=== PATIENT | female | born 1970 | race Caucasian/White ===

== ENCOUNTER 2018-08-24 21:04 | Inpatient (IN) | payer BC ==
[2018-08-24] MEDS ORDERED: MORPHINE SULFATE 4 MG/ML SYRINGE IV STA (21:12)
--- NOTE | 2018-08-24 21:15 | ED ---
Abdominal Pain HPI - General Stated Complaint: Abdominal Pain Time Seen by Provider: 08/24/18 21:06 - History of Present Illness Initial Comments: This patient is a 48-year-old woman who arrives here as a transfer from [facility], where she had gone earlier today after developing abdominal pain. The patient states that her pain had started around 2 PM. She indicates it is in the right lower quadrant, she refers to it as a sharp pain, and that it is severe. She states that it is constant and she has not found any relieving factors. She states that it does get worse when she touches that area. She denies any associated symptoms. She went to the other hospital where she had a CAT scan that reportedly has shown an acute appendicitis. MD Complaint: abdominal pain Onset/Timin -: hour(s) Location: RLQ Radiation: none Migration to: no migration Severity: severe Quality: sharp Consistency: constant Improves With: nothing Worsens With: other (Patient) Associated Symptoms: denies other symptoms - Related Data Patient : No (Hysterectomy) Allergies Allergy/AdvReac Type Severity Reaction Status Date / Time No Known Allergies Allergy Verified 08/24/18 21:08 Review of Systems ROS Statement: Those systems with pertinent positive or pertinent negative responses have been documented in the HPI. ROS Other: All systems not noted in ROS Statement are negative. Constitutional: Denies: fever, chills Respiratory: Denies: cough, dyspnea Cardiovascular: Denies: chest pain, palpitations, edema Gastrointestinal: Reports: as per HPI, abdominal pain. Denies: nausea, vomiting , diarrhea, constipation, melena, hematochezia Genitourinary: Denies: dysuria, hematuria Musculoskeletal: Denies: back pain Skin: Denies: rash Neurological: Denies: headache Hematological/Lymphatic: Denies: easy bleeding General Exam General appearance: alert, in no apparent distress Head exam: Present: atraumatic, normocephalic Eye exam: Present: normal appearance. Absent: scleral icterus, conjunctival injection Respiratory exam: Present: normal lung sounds bilaterally. Absent: respiratory distress, wheezes, rales, rhonchi, stridor Cardiovascular Exam: Present: regular rate, normal rhythm, normal heart sounds. Absent: systolic murmur, diastolic murmur, rubs, gallop GI/Abdominal exam: Present: soft, tenderness, guarding. Absent: distended, rebound, rigid, mass, pulsatile mass, hernia Extremities exam: Present: normal inspection, normal capillary refill. Absent: pedal edema, calf tenderness Back exam: Present: normal inspection. Absent: CVA tenderness (R), CVA tenderness (L) Neurological exam: Present: alert Skin exam: Present: warm, dry, intact, normal color. Absent: rash Course Vital Signs 08/24/18 21:08 Temperature 98.3 F Pulse Rate 81 Respiratory 16 Rate Blood Pressure 144/91 O2 Sat by Pulse 97 Oximetry - Reevaluation(s) Reevaluation #1: 08/24/18 21:[address] Luther, I requests patient be admitted, continued nothing by mouth, IV fluids, antibiotics, and he is arranging the OR time. Disposition Clinical Impression: Acute appendicitis Disposition: ADMITTED IP TO THIS HOSP Condition: Fair Is patient prescribed a controlled substance at d/c from ED?: No Referrals: Fam Taylor DO [Primary Care Provider] - 1-2 days
[2018-08-24] MEDS ORDERED: ONDANSETRON 4 MG/2 ML VIAL IVP PRN (21:21)
[2018-08-24] MEDS ORDERED: MORPHINE SULFATE 4 MG/ML SYRINGE IV PRN (21:21)
[2018-08-24] MEDS ORDERED: NALOXONE 0.4 MG/ML 1 ML VIAL IV PRN (21:21)
[2018-08-24] MEDS: SODIUM CHLORIDE 0.9% 1,000 ML IV STA (21:43)
[2018-08-24] MEDS: HYDROmorphone 1 MG/ML 1 ML SYRINGE IVP PRN (23:08)
[2018-08-24] MEDS: PIPERACILLIN-TAZOBACTAM 3.375 GM in SODIUM CHLORIDE 0.9% 100 ML IVPB SCH (23:27)
[2018-08-25] MEDS: HYDROmorphone 1 MG/ML 1 ML SYRINGE IVP PRN ×6 (01:49→20:12)
[2018-08-25] MEDS ORDERED: PROPOFOL 10 MG/ML 20 ML VIAL IV ONE (06:30)
[2018-08-25] MEDS ORDERED: MIDAZOLAM 2 MG/2 ML VIAL ONE (06:30)
[2018-08-25] MEDS ORDERED: GLYCOPYRROLATE 0.2 MG/ML 2 ML VIAL ONE (06:30)
[2018-08-25] MEDS ORDERED: LIDOCAINE 1% INJ 10MG/ML (20 ML MDV) ONE (06:30)
[2018-08-25] MEDS ORDERED: HEPARIN SODIUM,PORCINE 5,000 UNIT/ML 1 ML VIAL ONE (06:30)
[2018-08-25] MEDS ORDERED: SUCCINYLCHOLINE CHLORIDE 100 MG/5 ML SYR IV ONE (06:30)
[2018-08-25] MEDS ORDERED: LACTATED RINGERS 1,000 ML IV ONE ×2 (06:30→06:50)
[2018-08-25] MEDS ORDERED: fentaNYL (PF) 50 MCG/ML 2 ML AMP ONE (06:30)
[2018-08-25] MEDS ORDERED: NEOSTIGMINE 1 MG/ML 10 ML VIAL ONE (06:30)
[2018-08-25] MEDS ORDERED: ROCURONIUM BROMIDE 10 MG/ML 10 ML VIAL IV ONE (06:30)
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
[2018-08-25] MEDS ORDERED: BUPIVACAIN-EPI 0.25%-1:200,000 30 ML VIAL SQ ONE ×2 (06:53)
[2018-08-25] MEDS: HYDROmorphone 1 MG/ML 1 ML SYRINGE IVP ONE ×2 (07:42→08:03)
[2018-08-25] MEDS ORDERED: KETOROLAC 30 MG/ML 1 ML VIAL IVP ONE (07:42)
--- NOTE | 2018-08-25 07:59 | P.OP ---
Date of Procedure: 08/25/18 Procedure(s) Performed: PREOPERATIVE DIAGNOSIS: Acute appendicitis POSTOPERATIVE DIAGNOSIS: Same PROCEDURE: Laparoscopic appendectomy SURGEON: Ashkan EBL: Total ANESTHESIA: General COMPLICATIONS: None OPERATIVE PROCEDURE: The patient was brought and placed on the operating table in the supine position. The patient was placed under general anesthesia. The abdomen was prepped and draped in the usual sterile fashion. A small vertical infraumbilical incision was made. The fascia was retracted anteriorly with Dru forceps. The Veress needle was advanced into the peritoneal cavity. The saline drop test was normal. Insufflation took place to 15 mmHg. A 5 mm trocar was then placed. An additional 5 mm suprapubic trocar was placed under direct visualization as well as a 12 mm left lower quadrant trocar under direct visualization. There was a small amount purulence within the peritoneal cavity. The appendix was inspected. It had gangrenous changes. In exact site of perforation was not evident however. The mesoappendix was dissected. The base of the appendix was divided using a linear 45 mm intestinal stapler. The mesentery itself was divided using the jones load stapler and the 12 mm clipper. The area was then irrigated. No further purulence or bleeding was seen. The appendix was brought out of the peritoneal cavity through the left lower quadrant trocar site within the trocar itself. The fascia at the 12 mm site was closed using a [place] 0 Vicryl stitch. The skin at all 3 sites was closed using 4-0 Monocryl sutures. Skin glue was then applied. DISPOSITION: Stable to recovery room
[2018-08-25] MEDS: SODIUM CHLORIDE 0.9% 1,000 ML IV STA (08:56)
[2018-08-25] MEDS: PIPERACILLIN-TAZOBACTAM 3.375 GM in SODIUM CHLORIDE 0.9% 100 ML IVPB SCH ×2 (09:00→16:18)
[2018-08-25] MEDS: HEPARIN SODIUM,PORCINE 5,000 UNIT/ML 1 ML VIAL SQ SCH ×3 (09:03→23:45)
[2018-08-25] MEDS: DOCUSATE 100 MG CAP PO SCH ×2 (09:04→20:19)
[2018-08-25] MEDS: DESVENLAFAXINE SUCCINATE 50 MG TAB.ER.24H PO SCH (12:38)
[2018-08-25] MEDS: LISINOPRIL 5 MG TAB PO SCH (12:38)
[2018-08-25] MEDS: SODIUM CHLORIDE 0.9% 1,000 ML IV SCH ×2 (12:39→18:45)
[2018-08-25] MEDS: ACETAMINOPHEN TAB 325 MG TAB PO PRN ×2 (14:04→18:30)
[2018-08-25] MEDS: GABAPENTIN 400 MG CAP PO SCH (20:18)
[2018-08-25] MEDS ORDERED: FENOFIBRATE 54 MG TAB PO SCH (21:00)
[2018-08-26] MEDS: PIPERACILLIN-TAZOBACTAM 3.375 GM in SODIUM CHLORIDE 0.9% 100 ML IVPB SCH ×2 (00:06→09:09)
[2018-08-26] MEDS: HYDROmorphone 1 MG/ML 1 ML SYRINGE IVP PRN (04:34)
[2018-08-26] MEDS: ACETAMINOPHEN TAB 325 MG TAB PO PRN (06:12)
[2018-08-26 08:22] VITALS: RESP 18
[2018-08-26] MEDS: HYDROcodone/APAP 5-325MG 1 EACH TAB PO PRN ×2 (08:36→12:50)
[2018-08-26] MEDS ORDERED: CHOLECALCIFEROL 1,000 UNIT TAB PO SCH (09:00)
[2018-08-26] MEDS: DESVENLAFAXINE SUCCINATE 50 MG TAB.ER.24H PO SCH (10:35)
[2018-08-26] MEDS: DOCUSATE 100 MG CAP PO SCH (10:35)
[2018-08-26] MEDS: HEPARIN SODIUM,PORCINE 5,000 UNIT/ML 1 ML VIAL SQ SCH (10:35)
[2018-08-26] MEDS: LISINOPRIL 5 MG TAB PO SCH (10:35)
[2018-08-26] MEDS: GABAPENTIN 400 MG CAP PO SCH (10:38)
[2018-08-26] MEDS: SODIUM CHLORIDE 0.9% 1,000 ML IV SCH (10:48)
[2018-08-26 12:05] VITALS: BP 131/80; PULSE 74; TEMP 98.2
--- NOTE | 2018-08-26 12:30 | P.DS ---
Providers Date of admission: 08/25/18 13:42 Expected date of discharge: 08/26/18 Attending physician: Asa Luther Primary care physician: Fam Taylor - Discharge Diagnosis(es) (1) Acute appendicitis Current Visit: Yes Status: Acute Hospital Course: The patient is a 40-year-old female who was admitted secondary to acute appendicitis. She had surgery by Dr. Luther. Postprocedure she was doing well. She had bowel movement. Pain was controlled by which she was requesting Motrin only. Continue antibiotics postdischarge was reviewed Vital Signs Temp 98.2 F 08/26/18 11:50 Pulse 74 08/26/18 11:50 Resp 18 08/26/18 11:50 BP 131/80 08/26/18 11:50 Pulse Ox 98 08/26/18 11:50 Intake & Output 08/25/18 08/26/18 08/26/18 18:59 06:59 18:59 Intake Total 650 1050 Output Total 5 Balance 645 1050 Intake: IV 650 Intake, IV Titration 200 Amount Piperacillin-Tazobactam 3 200 .375 gm In Sodium Chloride 0.9% 100 ml @ 25 mls/hr IVPB Q8HR [facility] Rx# :[id number] Oral 850 Output: Estimated Blood Loss 5 Other: Voiding Method Toilet # Voids 2 1 PHYSICAL EXAM: VITAL SIGNS: Currently stable. GENERAL: Well-developed in no acute distress. HEENT: No sclera icterus. Extraocular movements grossly intact. Moist buccal mucosa. Head is atraumatic, normocephalic. Hears conversational speech. No nasal drainage. NECK: Supple without lymphadenopathy. CHEST: Non-labored respirations and equal bilateral excursions. CARDIOVASCULAR: Regular rate with regular rhythm. Palpable 2+ radial pulses. ABDOMEN: Soft. Nondistended. Incision clean dry and intact MUSCULOSKELETAL: No clubbing, cyanosis or edema. NEUROLOGIC: No focal or lateralizing signs. Cranial nerves II through XII grossly intact. PSYCH: Appropriate affect. Alert and oriented to person, place and time. SKIN: Well perfused. Good skin turgor. LABS: Reviewed ASSESSMENT: 1. Acute appendicitis PLAN: 1. May discharge home with antibiotics. 2. Patient requested for Motrin which is recurrent Procedures: Laparoscopic appendectomy by Dr. Luther Patient Condition at Discharge: Good Plan - Discharge Summary New Discharge Prescriptions: New Amoxicillin/Potassium Clav [Augmentin 875-125 Tablet] 1 tab PO BID 5 Days # 10 tab Hydrocodone/Acetaminophen [[place] 5-325] 1 - 2 each PO Q4HR PRN #10 tab PRN Reason: pain No Action Gabapentin [Neurontin] 800 mg PO BID Cholecalciferol [Vitamin D3] 1,000 unit PO DAILY Multivitamin [Multivitamins Adult Gummies] 1 tab PO DAILY Lisinopril [Zestril] 5 mg PO DAILY Fenofibrate Nanocrystallized [Fenofibrate] 48 mg PO HS Desvenlafaxine Succinate [Pristiq ER] 50 mg PO DAILY Discharge Medication List Cholecalciferol [Vitamin D3] 1,000 unit PO DAILY 08/24/18 [History] Desvenlafaxine Succinate [Pristiq ER] 50 mg PO DAILY 08/24/18 [History] Fenofibrate Nanocrystallized [Fenofibrate] 48 mg PO HS 08/24/18 [History] Gabapentin [Neurontin] 800 mg PO BID 08/24/18 [History] Lisinopril [Zestril] 5 mg PO DAILY 08/24/18 [History] Multivitamin [Multivitamins Adult Gummies] 1 tab PO DAILY 08/24/18 [History] Amoxicillin/Potassium Clav [Augmentin 875-125 Tablet] 1 tab PO BID 5 Days #10 tab 08/25/18 [Rx] Hydrocodone/Acetaminophen [[place] 5-325] 1 - 2 each PO Q4HR PRN #10 tab 08/25/18 [Rx] Follow up Appointment(s)/Referral(s): Asa Luther MD [Medical Doctor] - 09/04/18 3:00 pm Fam Taylor DO [Primary Care Provider] - 1-2 days
== END 2018-08-26 13:50 | disposition home or self-care (01) | DRG 343 ==
LOC: EC 21:04 → 6PED 21:21 → OBSVTOIN 08-25 13:42
PROVIDERS: ADMIT Surgery; ATTEND Surgery
PROC: 0DTJ4ZZ Resection of Appendix, Percutaneous Endoscopic Approach (ICD-10-PCS; principal; 2018-08-25 06:30)
DX: K35.80 Unspecified acute appendicitis (principal); Z87.441 Personal history of nephrotic syndrome; Z90.710 Acquired absence of both cervix and uterus; Z90.49 Acquired absence of other specified parts of digestive tract; Z79.899 Other long term (current) drug therapy
CPT/HCPCS: 88304; 96374; 99285